=== PATIENT | female | born 2000 | race Hispanic/Latino ===

== ENCOUNTER 2019-04-05 13:22 | Emergency (ER) | payer OTHER ==
[~2019-04-05] VITALS: Ht 149.9 cm; Wt 59.0 kg
[2019-04-05] MEDS ORDERED: FLUORESCEIN SOD(OPTH) 1 MG STRP OP ONE (13:30)
[2019-04-05] MEDS ORDERED: TETRACAINE HCL 0.5% OPTH SOLN 4 ML BTL OP ONE (13:30)
== END 2019-04-05 14:21 | disposition home or self-care (01) ==
LOC: ER 13:22
DX: H18.822 Corneal disorder due to contact lens, left eye (principal)
CPT/HCPCS: 99284